=== PATIENT | female | born 1980 | race Caucasian/White ===

== ENCOUNTER 2019-12-23 11:53 | Emergency (ER) | payer MEDICAID ==
--- NOTE | 2019-12-23 13:26 | CR ---
Right ankle: 3 views of the right ankle were obtained. Comparison: No previous ankle study. Soft tissue swelling is noted. Minimal avulsion fracture is noted at the tip of the medial malleolus. No additional fracture or other abnormality is appreciated. Impression: 1. Minimal avulsion fracture off the inferior tip of the medial malleolus. 2. Soft tissue swelling. Diagnostic code #2 This report was dictated in Mountain Standard Time
--- NOTE | 2019-12-23 13:40 | EDM.PDOC ---
ED HPI GENERAL MEDICAL PROBLEM - General Chief Complaint: Lower Extremity Injury/Pain Stated Complaint: INJURY TO RT ANKLE Time Seen by Provider: 12/23/19 12:23 - History of Present Illness INITIAL COMMENTS - FREE TEXT/NARRATIVE: HPI 39-year-old obese female presents for evaluation of right ankle pain after an inversion injury following a misstep yesterday, patient is Johnny bandage her ankle and remains ambulatory with a cane. Patient is concerned that her ankle may be broken is requesting an x-ray. Denies further injuries or symptoms. ROS with no recent constitutional symptoms. Exam HR 81, RR 18, BP 113/77, T 35.6C, SaO2 96% on room air. Gen: Pleasant, nontoxic-appearing, resting comfortably. HEENT: NC, AT, PEERL, EOMI. Resp: Unlabored respirations with a normal work of breathing. Card: Extremities warm and well perfused. GI: Non-distended. : Deferred MSK: right calf without visible or palpable trauma, muscle compartments soft and non-tender to palpation. Brito test with plantar flexion. No tenderness to palpation over the tibia or fibula. With diffuse swelling, greater over the lateral malleolus with ecchymosis inferior to the lateral malleolus. Mild tenderness over the posterior lateral malleolus, no tenderness over the posterior medial malleolus. Able to dorsiflex, plantarflex, joaquim, and invert the ankle with globally reduced range of motion secondary to discomfort. Foot visually normal without tenderness to palpation, specifically including the navicular bone and the base of the 5th metatarsal. Able flex and extend all toes. Muscle compartments of the foot are soft. Neurovascular 2+ DP and PT pulses. Sensation grossly intact to touch on the calf. Sensation intact to touch on all toes, first web space, the medial, lateral, plantar and dorsal surfaces of the foot. Neuro: alert and oriented 3, no facial asymmetry, vision and hearing WNL. Heme/Lymph: Deferred Skin: Normal color with no visible lesions (other than noted above). Psych: Mood and affect appropriate. XR R ankle: mild avulsion fracture of the inferior to the medial malleolus. Soft tissue swelling. MDM Previous chart, nursing note, and vitals reviewed. A: 39-year-old obese female presents for evaluation of right ankle pain after an inversion injury following a misstep yesterday, patient is Johnny bandage her ankle and remains ambulatory with a cane. DDx & Evaluation: CMS intact, exam without evidence of crystalline or septic arthropathy. Patient with mild avulsion fracture inferior to the medial malleolus. Split provided, patient provided with crutches. Orthopedics follow- up recommended. Impression: right ankle avulsion fracture. Right Ankle Pain Score (Numeric/FACES): 1 - Related Data Allergies Allergy/AdvReac Type Severity Reaction Status Date / Time No Known Allergies Allergy Verified 12/23/19 12:09 Home Meds: Home Meds Cholecalciferol (Vitamin D3) [Vitamin D] 1 tab PO DAILY 12/23/19 [History] Escitalopram [Lexapro] 40 mg PO DAILY 12/23/19 [History] Past Medical History Psychiatric History: Reports: Anxiety - Past Surgical History GI Surgical History: Reports: Cholecystectomy Social & Family History - Family History Family Medical History: Noncontributory - Tobacco Use Smoking Status *Q: Current Every Day Smoker Years of Tobacco use: 25 Packs/Tins Daily: 1 - Recreational Drug Use Recreational Drug Use: No Review of Systems - Review of Systems Review Of Systems: See Below ED EXAM, GENERAL - Physical Exam Exam: See Below Course - Vital Signs Last Recorded V/S: Last Vital Signs Temp 35.6 C L 12/23/19 12:03 Pulse 81 12/23/19 12:03 Resp 18 12/23/19 12:03 BP 113/77 12/23/19 12:03 Pulse Ox 96 12/23/19 12:03 - Orders/Labs/Meds Orders: Active Orders 24 hr Category Date Time Status Communication Order [RC] STAT Care 12/23/19 13:35 Ordered Splinting [RC] ASDIRECTED Care 12/23/19 13:34 Ordered Departure - Departure Time of Disposition: 13:39 Disposition: Home, Self-Care 01 Clinical Impression: Avulsion fracture of right ankle - Discharge Information Referrals: PCP,None [Primary Care Provider] - Additional Instructions: You were in seen in the Emergency Department for evaluation of ankle pain, you were found to have an avulsion fracture on your right ankle, this is where a ligament pulse free from the bone. Please use the provided splint and crutches until advised to change by orthopedics. Please follow-up with orthopedics within 3-5 days. You should contact Dr. Elmore as below to schedule follow-up care. Please read and follow all of the instructions below. Dr. Markell Elmore. [facility] [address] [facility], [address], [place] [address] Please follow up with your primary care physician in 4-5 days if you have any further ongoing symptoms. When calling for follow-up care, please make the office aware that this follow-up is from your recent emergency room visit. If for any reason you are refused follow-up, please contact the Emergency Department at and asked to speak to the emergency department charge nurse. Your care today was limited to identifying and treating emergent medical problems only. Many people have subtle differences in their test results that require follow up with their outpatient physician(s) to correctly determine if this represents a normal variation or concerning abnormality with respect to your specific health. The care given to you today was limited to identifying and treating emergent medical problems - you need to request a copy of all of your medical records from today's visit and follow up with your outpatient physician(s) to review both today's visit and your overall health. If you have any new symptoms or if you are at all concerned about your health please return immediately to the emergency department. Please return to the emergency department or promptly call your primary care doctor if you develop any of the following: * Significantly worsening pain. * Decreased sensation in your foot. * A cold or numb foot. * Fevers, chills, redness at the ankle or warmth on the skin at your ankle. * If you are otherwise concerned about your health. You make take over the counter Acetaminophen (Tylenol) and Ibuprofen (Motrin or Aleve) as directed below for relief of pain. Take 600 mg of ibuprofen (three 200 mg tablets) with a glass of water every 6-8 hours as needed for pain or fever. Take 1,000 mg of acetaminophen (two 500 mg tablets) with a glass of water every 6-8 hours as needed for pain. You can take these medications at the same time or on separate schedules. Do not take for more than 10 days. Do not take with alcohol or other acetaminophen containing medications. This medication may cause a mildly upset stomach, if so take it with a small snack. Stop taking it if you have persistent abdominal pain, heartburn, or any stomach pain. Do not take this medication if you have known ulcers. Please read the warnings at the end of this document regarding these medications. IBUPROFEN WARNING: This drug may infrequently cause serious (rarely fatal) bleeding from the stomach or intestines. Also, related drugs rarely have caused blood clots to form, resulting in heart attacks and strokes. This medication might also rarely cause similar problems. Talk to your doctor or pharmacist about the benefits and risks of treatment, as well as other possible medication choices. If you notice any of the following rare but very serious side effects, stop taking ibuprofen and seek immediate medical attention: black stools, persistent stomach/abdominal pain, vomit that looks like coffee grounds, chest pain, weakness on one side of the body, sudden vision changes, slurred speech. IBUPROFEN SIDE EFFECTS: Upset stomach, nausea, vomiting, heartburn, headache, diarrhea, constipation, drowsiness, and dizziness may occur. If any of these effects persist or worsen, notify your doctor or pharmacist promptly. If your doctor has directed you to use this medication, remember that he or she has judged that the benefit to you is greater than the risk of side effects. Many people using this medication do not have serious side effects. Tell your doctor immediately if any of these serious side effects occur: stomach pain, swelling of the hands or feet, sudden or unexplained weight gain, ringing in the ears ( tinnitus). Tell your doctor immediately if any of these unlikely but serious side effects occur: vision changes, rapid or pounding heartbeat, easy bruising or bleeding, difficult/painful swallowing. Tell your doctor immediately if any of these highly unlikely but very serious side effects occur: change in amount of urine, severe headache, very stiff neck, mental/mood changes, persistent sore throat or fever. This drug may rarely cause serious (possibly fatal) liver disease. If you notice any of the following highly unlikely but very serious side effects, stop taking ibuprofen and consult your doctor or pharmacist immediately: yellowing eyes and skin, dark urine, unusual/extreme tiredness. An allergic reaction to this drug is unlikely, but seek immediate medical attention if it occurs. Symptoms of an allergic reaction include: rash, itching/ swelling (especially of the face/tongue/throat), severe dizziness, trouble breathing. This is not a complete list of possible side effects. ACETAMINOPHEN SIDE EFFECTS: This drug usually has no side effects. If you do not have liver problems, the maximum dose of acetaminophen for adults is 4 grams per day (4000 milligrams). Taking more than the maximum daily amount may cause serious (possibly fatal) liver damage. Get medical help right away if you have any of the following symptoms of liver damage: persistent nausea/vomiting, extreme tiredness, stomach/abdominal pain, yellowing eyes/skin, dark urine. If you have liver problems, consult your doctor or pharmacist for a safe dosage of this medication. A very serious allergic reaction to this drug is rare. However , get medical help right away if you notice any symptoms of a serious allergic reaction, including: rash, itching/swelling (especially of the face/tongue/ throat), severe dizziness, trouble breathing. This is not a complete list of possible side effects. If you notice other effects not listed above, contact your doctor or pharmacist. DRUG INTERACTIONS: Your healthcare professionals (e.g., doctor or pharmacist) may already be aware of any possible drug interactions and may be monitoring you for it. Do not start, stop or change the dosage of any medicine before checking with them first. This drug should not be used with the following medications because very serious interactions may occur: cidofovir, ketorolac. If you are currently using any of these medications listed above, tell your doctor or pharmacist before starting ibuprofen. Before using this medication, tell your doctor or pharmacist of all prescription and nonprescription/herbal products you may use, especially of: anti-platelet drugs (e.g., cilostazol, clopidogrel), oral bisphosphonates (e.g., alendronate), other medications for arthritis (e.g., aspirin, methotrexate), "blood thinners" (e.g., enoxaparin, heparin, warfarin), corticosteroids (e.g., prednisone), cyclosporine, desmopressin, high blood pressure drugs (including JOHNNY inhibitors such as captopril, angiotensin II receptor antagonists such as losartan, and beta- blockers such as metoprolol), lithium, pemetrexed, "water pills" (diuretics such as furosemide, hydrochlorothiazide, triamterene). Check all prescription and nonprescription medicine labels carefully for other pain/fever drugs ( NSAIDs such as aspirin, celecoxib, naproxen). These drugs are similar to ibuprofen, so taking one of these drugs while also taking ibuprofen may increase your risk of side effects. Consult your doctor or pharmacist for more details. However, if your doctor has prescribed low doses of aspirin to prevent heart attack or stroke (usually at dosages of 81-325 milligrams a day), you should continue to take the aspirin. Daily use of ibuprofen may decrease aspirin 's ability to prevent heart attack/stroke. Talk to your doctor about using a different medication (e.g., acetaminophen) to treat pain/fever. If you must take ibuprofen, talk to your doctor about possibly taking immediate-release aspirin (not enteric-coated) while also taking the ibuprofen dose apart from your aspirin dose. Do not increase your daily dose of aspirin or change the way you take aspirin/other medications without your doctor's approval. This document does not contain all possible interactions. Therefore, before using this product, tell your doctor or pharmacist of all the products you use. Keep a list of all your medications with you, and share the list with your doctor and pharmacist. Crutch Use Instructions Setting Up the Crutches: Secure the arm pads and hand veneer trimmer prior to use. Tighten all hardware ( ie. screws and wing nuts) at least once per week. Clean the crutch tips of linda and dirt to minimize slipping. Have someone assist you until you master the technique of crutch use. Remove loose rugs and electrical cords from all potential paths to avoid tripping and falling. Replace crutch tips if they should wear out. Be careful on wet indoor surfaces which may be extremely slick. To walk with Crutches: Put your crutches under your arms and press them against your body. Make sure to bear your weight on your hands, not under your arms. Move the crutches ahead of you approximately 12 inches. Push down on the veneer trimmer as you step slightly past the crutches, leading with the GOOD LEG. Advance the crutches forward approximately 12 inches; then continue. To get up from a seated position: Hold both crutches on affected side. Slide to the edge of the chair or seat. Push down on the arm of the chair on the good side. Stand up, then put the crutches under your arms. Press the arm pads into the body. To Sit Down: Back up to the chair or seat to within 2-3 inches. Put both crutches in your hand on the affected side, reach backwards for the chair or seat with the other hand. Lower yourself slowly into the chair, bending at the hips. To go upstairs: Start close to the bottom step, and push down with your hands. Step up to the first step, remembering to lead with your GOOD LEG. (Good Leg "UP") Next, step up to the same step with the other foot, making sure to keep the crutches with your affected limb. To go downstairs: Start at the edge of the step, keeping your hips beneath you. Slowly bring the crutches with your affected limb down to the next step. BAD LEG first down the stairs. (Bad Leg "Down") Be sure to bend at the hips and knees to prevent leaning too far forward, which could cause you to fall. If handrail is available, place both crutches in hand on unaffected side with rail on affected side. Advance hand on rail slightly and place crutches on lower stair. Then advance both legs simultaneously to next stair. Prescriptions: If you are uninsured or have financial difficulties with filling your prescription(s), you may consider using a free pharmacy discount service such as [employer] ([employer]) or [employer] ([employer]). These services allow you to search for a medication on your phone (or computer) and obtain a coupon that usually has a significant discount from the list perdomo at a pharmacy. Your physician as well as [facility] does not have a financial relationship with either of these services. You may also wish to speak with your physician to determine if lower cost prescriptions are possible. Obtaining primary care: 1. [facility] provides pediatrics (children), family medicine (children, adults, and some obstetrical care), and internal medicine (adults). Further specialty care is also available. Same day appointments are available. They may be contacted at [phone] and are open Sunday through Sunday 8 AM to 5 PM. The [facility] are located at [facility], [address] [place] [address]. 2. [facility] offers family medicine, internal medicine, [facility], and further specialty care. [facility] may be contacted at [phone]. [facility] is located at [address] [place], [address]. 3. If you have health insurance, please also contact your insurer for a list of accepting providers under your policy, you may contact these providers for further health care. Occupational health: Work related injuries may consider following up with [facility], . Occupational health services are located at [address] [place] [id number] and are open Sunday through Sunday from 7: 30 am to 5:00 pm. Obstetrical and Gynecological Care: [facility], , Sunday through Sunday 8 AM to [address] [place] [address]. Eyecare: If you have an eye injury you should follow up with your counseling psychologist or with [facility], at [phone] or [phone] , they are located at [address] [place] [address]. Dental Care Navdeep Grijalva DDS. [address] [facility], [place], [place]. Ph. [phone] Umer Grijalva DDS MS. [address] [facility] [address], [place], [place]. Ph. John Frost DDS. [address] [place]. Ph. [phone] Braulio Means DDS. [address] [facility] [address] [place], [place]. Ph. [phone] Estevan Lyle DDS PC. [address] [place], [place]. Ph. Abdi Rosales DDS. [address] [facility]. Ph. [phone] [facility]. [address] [place], [place]. Ph. [phone] [facility]. [address], [place], [place]. Ph. [phone] [facility] [address] [place] [phone]. Ph. [facility]. [address] [place] [address] [address] Renaldo DULCE. Ph. [facility]. [address], [place]. Ph. Sepsis Event Note - Evaluation Sepsis Screening Result: No Definite Risk - Focused Exam Vital Signs: Vital Signs Temp Pulse Resp BP Pulse Ox 12/23/19 12:03 35.6 C L 81 18 113/77 96 Date Exam was Performed: 12/23/19 Time Exam was Performed: 13:39 - My Orders Last 24 Hours: My Active Orders 12/23/19 13:34 Splinting [RC] ASDIRECTED 12/23/19 13:35 Communication Order [RC] STAT - Assessment/Plan Last 24 Hours: My Active Orders 12/23/19 13:34 Splinting [RC] ASDIRECTED 12/23/19 13:35 Communication Order [RC] STAT
== END 2019-12-23 14:45 | disposition home or self-care (01) ==
LOC: MW.ED 11:53
DX: S82.51XA Displaced fracture of medial malleolus of right tibia, initial encounter for closed fracture (principal); F41.9 Anxiety disorder, unspecified; F17.210 Nicotine dependence, cigarettes, uncomplicated; Z79.899 Other long term (current) drug therapy; X50.1XXA Overexertion from prolonged static or awkward postures, initial encounter
CPT/HCPCS: 73610-26-RT; 73610-RT; 99283-25